=== PATIENT | male | born 2000 | race Caucasian/White ===

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

== ENCOUNTER 2018-01-17 19:23 | Emergency (ER) | payer MEDICAID, OTHER ==
[2018-01-17 19:50] VITALS: BP 129/69
[2018-01-17] MEDS ORDERED: Diphtheria,Pertussis(Acell),Tetanus Vaccine 0.5 ML Syringe IM ONE (19:59)
--- NOTE | 2018-01-17 20:03 | EDM.PDOC ---
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 It was in his usual state of good health when this occurred and he is [id number]. He put a dressing on it and has not looked at it since. It occurred about 2 hours ago. He is able to move all of his fingers and has no neurosensory changes or weakness in his digits or his wrist. He has no other injuries. Review of systems: As per history of present illness and below otherwise all systems reviewed and negative. Past medical history: As per history of present illness and as reviewed below otherwise noncontributory. Surgical history: As per history of present illness and as reviewed below otherwise noncontributory. Social history: No reported history of drug or alcohol abuse. Family history: As per history of present illness and as reviewed below otherwise noncontributory. Physical exam: General: Well-developed well-nourished man who is nontoxic and vital signs were noted by me HEENT: Atraumatic, normocephalic, negative for conjunctival pallor or scleral icterus, mucous membranes moist, throat clear, neck supple, nontender, trachea midline. Lungs: Clear to auscultation, breath sounds equal bilaterally, chest nontender. Heart: S1S2, regular rate and rhythm no overt murmurs Abdomen: Soft, nondistended, nontender. NABS Pelvis: Deferred Genitourinary: Deferred. Rectal: Deferred. Extremities: Atraumatic with full range of motion of all extremities with the exception of the palmar surface of the right hand where there is a very superficial 3 cm linear laceration at the meat of the opponens area. There is no active bleeding or soft tissue swelling and the patient has full range of motion flexion extension and opposition of the thumb. There informed bodies appreciated Neurovascular unremarkable. Neuro: Awake, alert, oriented. Cranial nerves II through XII unremarkable. Cerebellum unremarkable. Motor and sensory unremarkable throughout. Exam nonfocal. Diagnostics: [] Therapeutics: Tdap, local wound care Procedure note: After the wound was cleansed and the wound was reevaluated Steri -Strips are applied and Dermabond placed. There are no complications and the patient tolerated this well. This procedure was performed by Hallie Chauhan NP Impression: Laceration to palm of right hand Definitive disposition and diagnosis as appropriate pending reevaluation and review of above. Right Hand Pain Score (Numeric/FACES): 5 - Related Data Allergies Allergy/AdvReac Type Severity Reaction Status Date / Time No Known Allergies Allergy Verified 01/13/18 19:18 Home Meds: Home Meds . [No Known Home Meds] 07/22/14 [History] Past Medical History - Past Health History Medical/Surgical History: Denies Medical/Surgical History Social & Family History - Family History Family Medical History: Noncontributory - Tobacco Use Smoking Status *Q: Never Smoker - Caffeine Use Caffeine Use: Reports: Coffee, Soda ED ROS GENERAL - Review of Systems Review Of Systems: ROS reveals no pertinent complaints other than HPI. ED EXAM, SKIN/RASH Exam: See Below (See dictation) Course - Vital Signs Last Recorded V/S: Last Vital Signs Temp 36.6 C 01/17/18 19:49 Pulse 65 01/17/18 19:49 Resp 16 01/17/18 19:49 BP 129/69 01/17/18 19:49 Pulse Ox 100 01/17/18 19:49 - Orders/Labs/Meds Orders: Active Orders 24 hr Category Date Time Status Communication Order [RC] STAT Care 01/17/18 19:59 Active Vaccines to be Administered [RC] PER UNIT ROUTINE Care 01/17/18 19:59 Active Octyl 2-Cyanoacrylate [Dermabond Advance] Med 01/17/18 20:04 Once 1 applic TOP ONETIME ONE Meds: Medications Discontinued Medications Generic Name Dose Route Start Last Admin Trade Name Freq PRN Reason Stop Dose Admin Diphtheria/Tetanus/Acell Pertussis 0.5 ml 01/17/18 19:59 Adacel IM 01/17/18 20:00 .ONCE ONE Departure - Departure Time of Disposition: 20:20 Disposition: Home, Self-Care 01 Condition: Good Clinical Impression: Laceration of hand Qualifiers: Encounter type: initial encounter Foreign body presence: without foreign body Laterality: left Qualified Code(s): S61.412A - Laceration without foreign body of left hand, initial encounter - Discharge Information Referrals: PCP,None [Primary Care Provider] - Forms: ED Department Discharge Additional Instructions: The following information is given to patients seen in the emergency department who are being discharged to home. This information is to outline your options for follow-up care. We provide all patients seen in our emergency department with a follow-up referral. The need for follow-up, as well as the timing and circumstances, are variable depending upon the specifics of your emergency department visit. If you don't have a primary care physician on staff, we will provide you with a referral. We always advise you to contact your personal physician following an emergency department visit to inform them of the circumstance of the visit and for follow-up with them and/or the need for any referrals to a consulting specialist. The emergency department will also refer you to a specialist when appropriate. This referral assures that you have the opportunity for followup care with a specialist. All of these measure are taken in an effort to provide you with optimal care, which includes your followup. Under all circumstances we always encourage you to contact your private physician who remains a resource for coordinating your care. When calling for followup care, please make the office aware that this follow-up is from your recent emergency room visit. If for any reason you are refused follow-up, please contact the [facility] emergency department at and ask to speak to the emergency department charge nurse. [facility] Primary care- Internal Medicine and Family [address] [id number] Keep area clean and dry these follow-up per your employer's direction for occupational health clearance. Return to ER as needed and as discussed please do not aggravate pick at or touch the Steri-Strips as they will fall off with the Dermabond naturally. Please try to reduce motion of your thumb over the next few days to ensure good healing. - My Orders Last 24 Hours: My Active Orders 01/17/18 19:59 Communication Order [RC] STAT Vaccines to be Administered [RC] PER UNIT ROUTINE 01/17/18 20:04 Octyl 2-Cyanoacrylate [Dermabond Advance] 1 applic TOP ONETIME ONE - Assessment/Plan Last 24 Hours: My Active Orders 01/17/18 19:59 Communication Order [RC] STAT Vaccines to be Administered [RC] PER UNIT ROUTINE 01/17/18 20:04 Octyl 2-Cyanoacrylate [Dermabond Advance] 1 applic TOP ONETIME ONE
[2018-01-17] MEDS ORDERED: Octyl 2-Cyanoacrylate 1 Tube TOP ONE (20:04)
== END 2018-01-17 20:55 | disposition home or self-care (01) ==
LOC: MW.ED 19:23
DX: S61.411A Laceration without foreign body of right hand, initial encounter (principal); Z23 Encounter for immunization; W26.8XXA Contact with other sharp object(s), not elsewhere classified, initial encounter; Y99.0 Civilian activity done for income or pay
CPT/HCPCS: 12002; 90471; 90715; 99282; A9270